=== PATIENT | male | born 1990 | race Two or more races ===

== ENCOUNTER 2025-01-07 01:12 | Emergency (ER) | payer MEDICAID, SELFPAY ==
[2025-01-07 01:13] VITALS: BMI 28.0
[2025-01-07 01:24] VITALS: BP 130/91; PULSE 98; RESP 18; TEMP 36.6; O2SAT 98
--- NOTE | 2025-01-07 01:30 | EKG_ITS ---
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
--- NOTE | 2025-01-07 01:31 | XR_ITS ---
EXAMINATION: PA chest single view TECHNIQUE: Upright PA chest single view Date and time: January 07, 2025, 0131 hours, comparison October 11, 2022 INDICATIONS: Renal failure patient undergoing dialysis, generalized weakness chest pain shortness of breath today FINDINGS: Right vascular stent overlying right apex Mild enlargement cardiac contour Mild vascular congestion. No interval pneumonia or pulmonary edema Old fracture left sixth rib IMPRESSION: Mild vascular congestion. No pneumonia or pulmonary edema
--- NOTE | 2025-01-07 01:31 | PD.EDRME ---
Rapid Medical Screening Exam RME Arrival date/time: 01/07/25 01:12 This is a case of 34-year-old male with history of dialysis came in in the emergency room due to generalized weakness headache chest pain and shortness of breath persistence of the symptoms this patient decided to start consult here in the emergency room Chief Complaint: General Adult/Misc Complain Vital signs: Vital Signs Temperature 97.8 F 01/07/25 01:24 Pulse Rate 98 01/07/25 01:24 Respiratory Rate 18 01/07/25 01:24 Blood Pressure 130/91 H 01/07/25 01:24 Pulse Oximetry (%) 98 01/07/25 01:24 Oxygen Delivery Method Room Air 01/07/25 01:24 Exam: Normal rate regular rhythm no murmur heart lungs clear breath sound no rales no crackles no rhonchi no stridor Clinical Impression: Generalized weakness
[2025-01-07 02:56] LABS: Basophils # (Auto) 0.0 Thou/mm3 (0.0-0.2); Basophils % (Auto) 1 % (0-2.5); Eosinophils # (Auto) 0.3 Thou/mm3 (0.0-0.5); Eosinophils % (Auto) 8 % (0-10); Hematocrit 30.4 % (41.0-53.0); Hemoglobin 9.9 g/dL (13.5-16.0); Immature Granulocytes Auto 0.01 Thou/mm3 (0.00-0.00); Lymphocytes # (Auto) 0.7 Thou/mm3 (1.0-4.8); Lymphocytes % (Auto) 17 % (10-50); Mean Corpuscular HGB Conc 32.6 g/dl (31.0-37.0); Mean Corpuscular Hemoglobin 31.4 pg (25.0-35.0); Mean Corpuscular Volume 97 fL (80-100); Monocytes # (Auto) 0.5 Thou/mm3 (0.0-0.8); Monocytes % (Auto) 12 % (0-12); Neutrophils # (Auto) 2.7 Thou/mm3 (1.8-7.7); Neutrophils % (Auto) 62 % (37-80); Nucleated Red Blood Cell # 0.00 Thou/mm3 (0.00-0.00); Nucleated Red Blood Cell % 0 /100 WBC (0); Platelet Count 233 Thou/mm3 (140-440); RDW Standard Deviation 49.5 fL (35.1-43.9); Red Blood Count 3.15 Miln/mm3 (4.50-5.90); White Blood Count 4.3 Thou/mm3 (3.8-10.6)
[2025-01-07 03:03] VITALS: BP 122/76; PULSE 91; RESP 12; TEMP 36.5; O2SAT 95
--- NOTE | 2025-01-07 03:08 | PD.EDADULT ---
ED General RME/HPI General Chief complaint: General Adult/Misc Complain Stated complaint: WEAKNESS Arrival date/time: 01/07/25 01:12 RME / HPI RME / HPI narrative: 01/07/25 01:12 This is a case of 34-year-old male with history of dialysis came in in the emergency room due to generalized weakness headache chest pain and shortness of breath persistence of the symptoms this patient decided to start consult here in the emergency room Dr. Hutson?s Main ED Evaluation: 34yo male with a history of ESRD on HD, HTN presents to the ED for complaints of generalized weakness, diffuse headache, shortness of breath, and intermittent left-sided sharp chest pain x Tuesday. Patient states his symptoms started after he completed his dialysis on Tuesday. Patient notes he feels dizzy when he stands up and fatigued when he ambulates. Patient subsequently complains of epigastric pain that radiates to his right shoulder for the last 3-4 days. Denies any fever, chills, or any other associated symptoms. He is anuric. Patient has not taken his antihypertensives in the last one month due to his systolic blood pressure being below 160. Related Data Home Medications ?Medication ?Instructions ?Recorded ?Confirmed hydralazine 50 mg tablet 1 tab PO BID #0 tabs 06/14/15 02/25/19 labetalol 200 mg tablet (Trandate) 200 mg PO BID #0 tabs 06/14/15 02/25/19 minoxidil 10 mg tablet 10 mg PO BID ##0 06/14/15 02/25/19 sevelamer carbonate 800 mg tablet 2,400 mg PO TIDWM #0 tabs 06/14/15 02/25/19 (Renvela) clonidine HCl 0.1 mg tablet 0.1 mg PO BID #0 tabs 08/01/16 02/25/19 omeprazole 20 mg capsule,delayed 20 mg PO QDAY PRN Acid Reflux ##0 08/01/16 02/25/19 release cholecalciferol (vitamin D3) 125 5,000 unit PO QDAY 06/12/17 02/25/19 mcg (5,000 unit) tablet (Vitamin D3) cinacalcet 30 mg tablet (Sensipar) 30 mg PO QDAY 08/21/17 02/25/19 apixaban 2.5 mg tablet (Eliquis) 2.5 mg PO BID 02/05/19 02/26/19 Allergies Allergy/AdvReac Type Severity Reaction Status Date / Time codeine Allergy Severe Hives Verified 10/11/22 11:48 dextrose 5 % in water (From Allergy Severe Swelling Verified 10/11/22 11:48 Zyvox) of the Eye fentanyl Allergy Severe Hives Verified 10/11/22 11:48 hydrocodone (From [place]) Allergy Severe Hives Verified 10/11/22 11:48 lidocaine Allergy Severe Rash Verified 10/11/22 11:48 linezolid (From Zyvox) Allergy Severe Swelling Verified 10/11/22 11:48 of the Eye nitroglycerin Allergy Severe RASH, Verified 10/11/22 11:48 THROAT CLOSES tramadol Allergy Severe RASH Verified 10/11/22 11:48 vancomycin Allergy Severe RASH Verified 10/11/22 11:48 Review of Systems Review of Systems Systems Reviewed: All systems reviewed, normal except as documented Past Medical History Past Medical History NEUROLOGIC: Negative Neurological Disorders or Seizures CARDIAC: Positive Cardiac Disorders, Hypercholesterolemia and Hypertension; Negative Congestive Heart Failure RESPIRATORY: Positive Pneumonia and Sleep Apnea; Negative Chronic Obstructive Pulmonary Disease (COPD) or Asthma GASTROINTESTINAL: Negative Gastrointestinal Disorders, Hepatitis or Gastroesophageal Reflux Disease GENITOURINARY: Positive Genitourinary Disorders, Renal Disease and Dialysis MUSCULOSKELETAL: Negative Musculoskeletal Disorders or Carpal Tunnel Syndrome ENDOCRINE: Negative Endocrine Disorders, Diabetes Mellitus Type 1, Diabetes Mellitus Type 2, Hypoglycemia or Hyperthyroidism HEMATOLOGIC: Positive Blood Disorders; Negative Anemia or Sickle Cell Disease OTHER HISTORY: Positive Hospitalization, Blood Transfusions and Organ Transplant; Negative Autoimmune Disease, Down Syndrome, Developmental Delay, Shingles, Falls, Blood Transfusion Reaction, Anesthesia Reactions, MRSA, Chicken Pox, Measles or Cancer Family History FAMILY HISTORY: Negative Family Psychiatric Problems, Family Respiratory Disorders, Family Cardiac Disorders, Family Gastrointestinal Problems, Family Cancer, Family Surgery or Family Anesthesia Reaction Surgical History SURGICAL: Positive Organ Transplant; Negative Cardiac Surgery, Endocrine Surgery, Ear Surgery, Throat Surgery, Abdominal Surgery, Nephrectomy, Transurethral Resection, Joint Replacement, Amputation, Open Reduction Internal Fixation, Arthroscopy or Brain Shunt Social History SMOKING STATUS: Never smoker SECOND HAND EXPOSURE: No SUBSTANCE USE: does not use ED Exam Narrative Physical exam: Generally patient is alert chronically ill-appearing male but no obvious distress, heart regular rate and rhythm, lungs clear to auscultation equal bilaterally, abdomen soft bowel sounds present minimal diffuse tenderness without rebound, extremities show no edema, neurologic exam shows [place] Coma Scale of 15 without focal motor deficit Course Course Course Narrative: CXR is ordered for determining the etiology of weakness. Quality Measures none Orders Category Date Time Status EKG (ED ONLY) *Do not use* NOW Care 01/07/25 01:30 Completed EKG (ED Only) Stat Exams 01/07/25 01:30 Draft XR chest 1V Stat Exams 01/07/25 01:31 Taken CBC Stat Lab 01/07/25 02:29 Completed Comprehensive Metabolic Panel Stat Lab 01/07/25 02:29 Completed Magnesium Stat Lab 01/07/25 02:29 Completed Troponin I Stat Lab 01/07/25 02:29 Completed Urinalysis Stat Lab 01/07/25 03:12 Ordered Vital Signs Vital signs: Vital Signs Temperature 97.8 F 01/07/25 01:24 Pulse Rate 98 01/07/25 01:24 Respiratory Rate 18 01/07/25 01:24 Blood Pressure 130/91 H 01/07/25 01:24 Pulse Oximetry (%) 98 01/07/25 01:24 Oxygen Delivery Method Room Air 01/07/25 01:24 Discharge Plan Plan Patient Disposition: HOME (Self Care) Prescriptions/Referrals Prescriptions/Med Rec: No Action minoxidil 10 MG tablet 10 mg PO BID Qty: 0 hydralazine 50 mg Tablet 1 tab PO BID Qty: 0 sevelamer carbonate [Renvela] 800 MG tablet 2,400 mg PO TIDWM Qty: 0 labetalol [Trandate] 200 MG tablet 200 mg PO BID Qty: 0 clonidine HCl 0.1 MG tablet 0.1 mg PO BID Qty: 0 omeprazole 20 MG capsule,delayed release(DR/EC) 20 mg PO QDAY PRN (Reason: Acid Reflux) Qty: 0 Eliquis 2.5 mg Tablet 2.5 mg PO BID cholecalciferol (vitamin D3) [Vitamin D3] 5,000 unit Tablet 5,000 unit PO QDAY cinacalcet [Sensipar] 30 mg Tablet 30 mg PO QDAY Referrals: No Primary/Family,Physician [Primary Care Provider] - In 1 week Problem List Clinical Impression: Chest pain, Dyspnea Patient/Caregiver Discharge Instructions Education Materials: ED Chest Pain, Uncertain Cause, ED Shortness of Breath (Dyspnea) Additional Instructions: Continue current medications. Keep your dialysis appointments. Follow-up with your doctor. Return to ER as needed or if condition worsens. Print Language: Citizen Of [place] Stand Alone Forms: Maame Award Info., Patient Portal Info Letter MDM Narrative MDM hospital course (for use when minimal MDM required): Scribe Attestation: 01/07/25 - Cande [place], am scribing for and in the presence of Dr. Hutson. I interpreted all labs. Hemoglobin is 9.9. Troponin is not elevated. Chest x-ray is clear. EKG is nonischemic. Patient's headache is diffuse. I do not believe an intracerebral process to be taken place in this patient. Patient just wanted to make sure that there was nothing obvious going on. He is not currently on blood pressure medication at this time. He will follow-up with his primary care physician. He is compliant with his dialysis. He is to continue to be compliant with his dialysis. Return to ER as needed or if condition worsens. Clinical Information Provided by: patient Medical Records reviewed [facility] (Per chart review, patient was seen here on 12/02/22 for AV fistula bleeding.) Meds/Rx considered, not ordered None Labs/Rad/Tests considered, not ordered None Chronic Illness/Social Conditions Explain: Hx ESRD on HD, HTN Labs Labs: interpreted by me Imaging Imaging interpretation: interpreted by me Medication Administration(s) none Diagnosis Differential Diagnosis ED Complaint MDM: See MDM
--- NOTE | 2025-01-07 03:14 | PC.LAC ---
Pt here c/o headache s/p dialysis on Tuesday. Pt c/o weakness, malaises, appetite and food and fluid consumption
[2025-01-07 03:16] VITALS: BP 122/76; PULSE 92; RESP 18; TEMP 36.6; O2SAT 98
[2025-01-07 03:17] LABS: Alanine Aminotransferase 21 U/L (10-49); Albumin, Serum 4.8 gm/dL (3.5-5.0); Albumin/Globulin Ratio 1.7 (1.2-2.2); Alkaline Phosphatase 65 U/L (46-116); Anion Gap 13 (7-16); Aspartate Amino Transferase 18 U/L (0-34); BUN/Creatinine Ratio 5 Ratio (12-20); Bilirubin,Total 0.2 mg/dL (0.3-1.2); Blood Urea Nitrogen 46 mg/dL (9-23); Calcium 9.8 mg/dL (8.3-10.6); Calcium (Corrected) 9.8 mg/dL (8.5-10.1); Carbon Dioxide 30.1 mMol/L (20.0-31.0); Chloride 92 mMol/L (98-107); Creatinine (Component) 8.9 mg/dL (0.6-1.3); Estimated Creatinine Clearance 10.9 mL/min (>60); Globulin 2.8 gm/dL (2.3-3.5); Glucose 91 mg/dL (74-106); Magnesium 2.2 mg/dL (1.6-2.6); Osmolality,Calculated 282 (275-295); Potassium 4.0 mMol/L (3.4-5.1); Sodium 135 mMol/L (136-145); Total Protein 7.6 gm/dL (5.7-8.2); Troponin I < 0.020 ng/mL (0.0-0.045); eGFR 7 See Note
[2025-01-07 03:59] VITALS: BP 135/85; PULSE 85; RESP 14; TEMP 37; O2SAT 99
== END 2025-01-07 04:00 | disposition home or self-care (01) ==
PROVIDERS: Nurse Practitioner Family; Emergency Provider Emergency Medicine
DX: R06.00 Dyspnea, unspecified (principal); R07.9 Chest pain, unspecified; R53.1 Weakness; R94.31 Abnormal electrocardiogram [ECG] [EKG]; I10 Essential (primary) hypertension
CPT/HCPCS: 36415; 71045; 80053; 81001; 83735; 84484; 85025; 93005; 99283